=== PATIENT | female | born 1970 | race Caucasian/White ===

== ENCOUNTER → 2020-09-05 13:26 | Outpatient (BNVA) | payer MEDICAID, SELFPAY | PROVIDERS: PCP Nurse Practitioner Primary Care; Visit Provider Nurse Practitioner Family ==

== ENCOUNTER 2020-09-20 11:14 | Outpatient (REF) | payer MEDICAID, SELFPAY ==
[2020-09-20 12:01] LABS: Hematocrit 41.1 % (37-47); Hemoglobin 13.4 g/dl (12.0-16.0); Mean Corpuscular HGB Conc 32.6 g/dl (31.0-35.0); Mean Corpuscular Hemoglobin 29.5 pg (27.0-33.0); Mean Corpuscular Volume 90.5 fL (80-98); Mean Platelet Volume 9.9 fL (9.4-12.3); Platelet Count 346 X10*3/uL (160-400); Red Blood Count 4.54 X10*6/uL (4.20-5.50); Red Cell Distribution Width 12.9 % (11.0-16.0); White Blood Count 7.4 X10*3/uL (4.8-10.8)
[2020-09-20 12:44] LABS: Alanine Aminotransferase 58 U/L (0-31); Albumin Level 4.3 g/dL (3.5-5.0); Alkaline Phosphatase 110 U/L (39-117); Anion Gap 11 (12-20); Aspartate Amino Transferase 28 U/L (5-31); Bilirubin Total 0.3 mg/dL (0.0-1.0); Blood Urea Nitrogen 12 mg/dL (9-16); Calcium 9.6 mg/dL (8.4-10.2); Carbon Dioxide 28 mmol/L (22-29); Chloride 105 mmol/L (96-108); Estimated Glomerular Filt Rate > 60; Glucose Random 91 mg/dL (60-115); Potassium 4.1 mmol/L (3.3-5.1); Sodium 140 mmol/L (135-145); Total Protein 7.3 g/dL (6.5-8.0)
== END 2020-09-20 11:15 | disposition home or self-care (01) ==
LOC: HO.LAB 11:14
PROVIDERS: PCP Nurse Practitioner Primary Care; Visit Provider Nurse Practitioner Family
DX: Z12.11 Encounter for screening for malignant neoplasm of colon (principal)
CPT/HCPCS: 36415; 80053; 85027

== ENCOUNTER → 2020-09-21 13:37 | Outpatient (BNVA) | payer MEDICAID, SELFPAY | PROVIDERS: PCP Nurse Practitioner Primary Care; Visit Provider Internal Medicine | DX: Z01.810 Encounter for preprocedural cardiovascular examination (principal); R07.9 Chest pain, unspecified; Z79.899 Other long term (current) drug therapy | CPT/HCPCS: 93005; 99202 ==

== ENCOUNTER → 2020-09-27 10:48 | Outpatient (REF) | payer MEDICAID, SELFPAY ==
--- NOTE | 2020-09-27 10:52 | CA_ITS ---
Acquisition Time: 2020-09-27 11:14:42 Total Exercise Time: 00:06:35 Test Indications: Chest Pain Medications: Protocol: SURESH Max HR: 164 BPM 97% of Pred: 168 BPM Max BP: 134/072 mmHG Max Work Load: 7.8 METS Exercise stress ECHO using Suresh protocol, total of 6 min 34 sec. METS 7.80. and TAPHR up to 97%. Pt tolerated well, however had 3/10 chest pressure in mid-sternal area after exercise. EKG without any arrhythmias, no ischemic changes seen during exercise or in recovery. ECHO images taken at rest and immediately after peak exercise HR acheaved. Definity contrast used. Normotensive response to exercise. Test reviewed with Dr. Castillo. STRESS ECHO : Technique : Images were obtained at rest and immediately post exercise within 45 seconds. Definity contrast was used to enhance endocardial definition. Images were obtained in multiple views and compared side to side. Findings : At rest images are of good quality. LV systolic function is normal with normal wall motion. Post exercise images are of adequate quality. There is overall good augmentation of LV systolic function with no regional wall motion abnormalities. Conclusion : Stress echo negative for ischemia Referred By: Gonsalo Simental Overread By: LARRY CASTILLO MD
== END ==
LOC: HO.CARD 10:48
PROVIDERS: Visit Provider Internal Medicine
DX: Z01.810 Encounter for preprocedural cardiovascular examination (principal); R07.9 Chest pain, unspecified
CPT/HCPCS: 93350; Q9957

== ENCOUNTER → 2020-10-02 14:04 | Outpatient (BNVA) | payer MEDICAID, SELFPAY | PROVIDERS: PCP Nurse Practitioner Primary Care; Visit Provider Nurse Practitioner Family ==

== ENCOUNTER 2020-10-12 10:18 | Day surgery (SDC) | payer MEDICAID, SELFPAY ==
[2020-10-06 13:51] VITALS: BMI 23.4
--- NOTE | 2020-10-11 08:30 | P.CONAN_ITS ---
Documented by User: Karley Cloud 10/11/20 08:32 HPI - Anesthesia Eval Consult details Narrative: 50yo F for Colonosocpy Cardiac cleared at low risk (sent d/t reports of exertional CP and SOB - likely r/t asthma) [facility] Active Problems Active Problems: All Active Problems (Updated 10/06/20 @ 13:49 by Shayla Mei) Exertional chest pain (Acute) Shortness of breath (Acute) Preoperative cardiovascular examination (Acute) Past Medical History Medical History Asthma Preoperative cardiovascular examination Shortness of breath Family History Family History Mother Hx of cancer of lung Father Family hx of hypertension Sister Hx of diabetes mellitus History of hyperthyroidism Surgical History Surgical History Hx of hysterectomy Hx of release of tendon Hx of tubal ligation Social History Social History (Updated 10/06/20 @ 13:54 by Shayla Mei) Household Members: Spouse and Children Smoking Status: Never smoker Use of substances other than those prescribed or required for medical reasons: No Advance Directives Information Provided: No Current occupational status: unemployed Meds Allergies Allergy/AdvReac Type Severity Reaction Status Date / Time shellfish derived Allergy Severe Anaphylaxis Verified 10/12/20 12:16 aspirin Allergy Intermediate SOB Verified 10/12/20 12:16 nalbuphine [From Nubain] Allergy Intermediate HYPOTENSION, Verified 10/12/20 12:16 SOB ibuprofen Allergy Swelling Verified 10/12/20 12:15 iodine Allergy Anaphylaxis Verified 10/12/20 12:15 Home Medications Medication Instructions Recorded Confirmed Last Taken Type albuterol sulfate 90 mcg/actuation 2 puff INHALATION 6XD 09/05/20 10/06/20 Unknown History aerosol inhaler cyclobenzaprine 5 mg tablet 5 mg PO TID PRN 09/05/20 10/06/20 Unknown History fluticasone propionate 110 1 puff INHALATION BID 09/05/20 10/06/20 Unknown History mcg/actuation HFA aerosol inhaler montelukast 10 mg tablet 10 mg PO BEDTIME 09/05/20 10/06/20 Unknown History Exam Exam Date and Time: October 11, 2020 0830 Height,Weight and Vital Signs: Height 5 ft 2 in Weight 58.2 kg Pertinent Lab Results Pertinent Lab Results: Laboratory Tests 09/20/20 09/20/20 11:44 11:44 WBC 7.4 Hgb 13.4 Hct 41.1 Plt Count 346 Sodium 140 Potassium 4.1 Chloride 105 Carbon Dioxide 28 BUN 12 Creatinine 0.79 Narrative Narrative: stress echo on 09/20/20 showing exercise 6.5 min, 7.8 METS with 3/10 chest pressure however No EKG Echo evidence of ischemi EKG 09/2020: NSR @ 82, Incomplete RBBB Assessment and Plan Assessment Anesthesia Assessment: Chart Reviewed Documented by User: Bertha Anti 10/12/20 13:07 PMFSH Past Medical History Medical History Asthma Preoperative cardiovascular examination Shortness of breath Family History Family History Mother Hx of cancer of lung Father Family hx of hypertension Sister Hx of diabetes mellitus History of hyperthyroidism Surgical History Surgical History Hx of hysterectomy Hx of release of tendon Hx of tubal ligation Social History Social History (Updated 10/06/20 @ 13:54 by Shayla Mei) Household Members: Spouse and Children Smoking Status: Never smoker Use of substances other than those prescribed or required for medical reasons: No Advance Directives Information Provided: No Current occupational status: unemployed Meds Allergies Allergy/AdvReac Type Severity Reaction Status Date / Time shellfish derived Allergy Severe Anaphylaxis Verified 10/12/20 12:16 aspirin Allergy Intermediate SOB Verified 10/12/20 12:16 nalbuphine [From Nubain] Allergy Intermediate HYPOTENSION, Verified 10/12/20 12:16 SOB ibuprofen Allergy Swelling Verified 10/12/20 12:15 iodine Allergy Anaphylaxis Verified 10/12/20 12:15 Home Medications Medication Instructions Recorded Confirmed Last Taken Type albuterol sulfate 90 mcg/actuation 2 puff INHALATION 6XD 09/05/20 10/06/20 Unknown History aerosol inhaler cyclobenzaprine 5 mg tablet 5 mg PO TID PRN 09/05/20 10/06/20 Unknown History fluticasone propionate 110 1 puff INHALATION BID 09/05/20 10/06/20 Unknown History mcg/actuation HFA aerosol inhaler montelukast 10 mg tablet 10 mg PO BEDTIME 09/05/20 10/06/20 Unknown History Exam Airway Mallampati Class: II TM Dist: >3cm Neck ROM: Full Loose/Missing/Broken Teeth: No Heart: RRR Lungs: CTA Assessment and Plan Assessment Anesthesia Assessment: Anesthesia Plan Discussed and Chart Reviewed Final Anesthetic Review NPO: Yes ASA Class: II Final Preanesthetic Review: Meds/Allgs Chart Reviewed, Consent Obtained/Reviewed and Anes Risks/Benef Reviewed Patient Risk: Low Procedure Risk: Low Anesthetic Plan Anesthetic Plan: MAC: Disposition: Standard PACU
[2020-10-12 11:17] VITALS: BP 141/65; PULSE 82; RESP 16; TEMP 36.7; O2SAT 99
[2020-10-12] MEDS: Lactated Ringers 1,000 ML 100 ML IVCONT (11:39)
--- NOTE | 2020-10-12 12:31 | MHC.SHP ---
Pre-Procedural Eval Section B Chief Complaint: Screening Details of Present Illness: COLON CANCER SCREENING Relevant Family History (Specify if Yes): No Relevant Social History: None Present Medications: see Short Stay Collaborative assessment Medical History: Significant History (ASTHMA--IRRITANT INDUCED.;SOB--NEG CARDIAC EVAL.) History of Previous Operations: Relevant previous surgery/procedure and date(s) (HYSTERECTOMY, BTL) Allergies: Allergies Allergy/AdvReac Type Severity Reaction Status Date / Time shellfish derived Allergy Severe Anaphylaxis Verified 10/12/20 12:16 aspirin Allergy Intermediate SOB Verified 10/12/20 12:16 nalbuphine [From Nubain] Allergy Intermediate HYPOTENSION, Verified 10/12/20 12:16 SOB ibuprofen Allergy Swelling Verified 10/12/20 12:15 iodine Allergy Anaphylaxis Verified 10/12/20 12:15 Review of Systems Sugical H&P ROS: Negative: Constitution, Cardiovascular, Gastrointestinal, Musculoskeletal and Endocrine and Yes, Specify: Respiratory (ASTHMA) Exam Surgical H&P Exam: Normal: HEENT, Normal: Heart, Normal: Lungs, Normal: Extremities and Normal: Abdomen Plan Diagnosis/Plan: Unchanged I have reviewed the history and physical and performed a pertinent physical examination on my patient. No changes have occurred unless specified.YES
[2020-10-12 13:00] VITALS: BP 105/42; PULSE 86; RESP 18; TEMP 35.9; O2SAT 100
--- NOTE | 2020-10-12 13:03 | PM.OP ---
Brief Operative Note Date of Service: 10/12/20 Pre-op diagnosis: COLON CANCER SCREENING # 1 NO KNOWN RISK FACTORS Post-op diagnosis: other (NORMAL EXAM) Procedure: COLONOSCOPY Implants: NONE Surgeon: Patito Beckett MD Anesthesia: MAC (MD BHAVANA) Estimated blood loss (mL): 0 Pathology: none sent Condition: stable Disposition: PACU
[2020-10-12 13:15] VITALS: BP 122/61; PULSE 78; RESP 18; TEMP 36.1; O2SAT 98
--- NOTE | 2020-10-12 13:41 | PC.NURSE ---
1325 MONITORS AND IVF DCD ASST OOB CH STEADY IV DCD SITE FEEL COOL, TENDER TO TOUCH PER PT DRESSED SELF AT BA CALL FUENTES IN REACH
--- NOTE | 2020-10-14 10:16 | W.PM.OPN ---
Operative Note Operative Note Date of Service: 10/12/20 Narrative: Pre-op diagnosis: COLON CANCER SCREENING # 1 NO KNOWN RISK FACTORS Post-op diagnosis: other (NORMAL EXAM) Procedure: COLONOSCOPY Implants: NONE Surgeon: Patito Beckett MD Anesthesia: MAC (MD BHAVANA) FINDINGS: CHAI: Sphincter tone adequate. Adult slim videocolonoscope was introduced without difficulty. Scope was easily introduced through Sigmoid, descending, transverse, ascending colon into the cecum. Appediceal orifice was seen. Ileocecal valve was seen. PREP: GOOD to excellent. Slow withdrawal of scope, good rotational views: No mucosal lesions were appreciated. ARV was seen and clear. Estimated blood loss (mL): 0 Pathology: none sent Condition: stable Disposition: PACU PLAN: Repeat screening in this patient would be 10 years.
== END 2020-10-12 14:06 | disposition home or self-care (01) ==
PROVIDERS: PCP Nurse Practitioner Primary Care; Visit Provider Internal Medicine Gastroenterology
PROC: 0DJD8ZZ Inspection of Lower Intestinal Tract, Via Natural or Artificial Opening Endoscopic (ICD-10-PCS; CPT 45378; principal; 2020-10-12 11:40)
DX: Z12.11 Encounter for screening for malignant neoplasm of colon (principal); J45.909 Unspecified asthma, uncomplicated; Z79.51 Long term (current) use of inhaled steroids; Z80.1 Family history of malignant neoplasm of trachea, bronchus and lung; Z88.8 Allergy status to other drugs, medicaments and biological substances
CPT/HCPCS: 45378

== ENCOUNTER → 2020-10-27 13:40 | Outpatient (BNVA) | payer MEDICAID, SELFPAY | PROVIDERS: PCP Nurse Practitioner Primary Care; Visit Provider Nurse Practitioner Family ==

== ENCOUNTER 2020-11-07 15:08 | Outpatient (REF) | payer MEDICAID, SELFPAY ==
--- NOTE | ~2020-11-07 | MM_ITS ---
EXAMINATION: MM SCREENING DIGITAL BREAST TOMOSYNTHESIS, BILATERAL CLINICAL INFORMATION: Screening. Asymptomatic. Prior outside mammography from [place] unavailable. No known family history breast cancer. Age 50. The lifetime risk of breast cancer based on the Tyrer-Cuzick Model is 7%. COMPARISON: None. TECHNIQUE: Digital breast tomosynthesis is performed in both the craniocaudal and mediolateral oblique views along with computer-aided detection (CAD). Synthesized 2D images are generated from the tomosynthesis. Additional left MLO view is provided. FINDINGS: There are scattered areas of fibroglandular density (ACR BI-RADS breast composition Category b). There are no significant masses, abnormal calcifications, or other abnormalities. The axilla and skin contours are unremarkable. If the outside mammography from [place] is made available, we will provide comparison in an addendum report. MM/MM tomosynthesis screening BI IMPRESSION: No mammographic evidence of malignancy. ASSESSMENT: BI-RADS 1: Negative RECOMMENDATION: Routine annual mammography screening. This patient's information was entered into a reminder system with a target due date for their next mammogram.
== END 2020-11-07 15:09 | disposition home or self-care (01) ==
LOC: HO.MAMMO 15:08
PROVIDERS: Visit Provider Nurse Practitioner Primary Care
DX: Z12.31 Encounter for screening mammogram for malignant neoplasm of breast (principal)
CPT/HCPCS: 77063; 77067

== ENCOUNTER → 2020-11-09 14:42 | Outpatient (BNVA) | payer MEDICAID, SELFPAY | PROVIDERS: PCP Nurse Practitioner Primary Care; Visit Provider Nurse Practitioner Family | DX: Z13.89 Encounter for screening for other disorder (principal) | CPT/HCPCS: 99212 ==

== ENCOUNTER → 2020-12-28 11:52 | Outpatient (BNVA) | payer MEDICAID, SELFPAY | PROVIDERS: PCP Nurse Practitioner Primary Care; Visit Provider Internal Medicine | DX: R07.2 Precordial pain (principal) | CPT/HCPCS: 99212 ==

== ENCOUNTER 2021-02-21 14:41 | Outpatient (REF) | payer MEDICAID, SELFPAY | END 2021-02-21 14:42 | disposition home or self-care (01) | LOC: HO.LAB 14:41 | PROVIDERS: PCP Nurse Practitioner Primary Care; Visit Provider Internal Medicine | DX: Z20.822 Contact with and (suspected) exposure to COVID-19 (principal) | CPT/HCPCS: C9803; U0003; U0005 ==

== ENCOUNTER 2021-03-15 13:04 | Outpatient (REF) | payer MEDICAID, SELFPAY ==
[2021-03-15 13:56] LABS: COVID-19 Test Negative (Negative)
== END 2021-03-15 13:05 | disposition home or self-care (01) ==
LOC: HO.LAB 13:04
PROVIDERS: PCP Nurse Practitioner Primary Care; Visit Provider Internal Medicine
DX: Z20.822 Contact with and (suspected) exposure to COVID-19 (principal)
CPT/HCPCS: 36415; 87635; C9803

== ENCOUNTER 2021-04-24 15:25 | Outpatient (REF) | payer MEDICAID, SELFPAY | END 2021-04-24 15:26 | disposition home or self-care (01) | LOC: HO.LAB 15:25 | PROVIDERS: PCP Nurse Practitioner Primary Care; Visit Provider Internal Medicine | DX: Z20.822 Contact with and (suspected) exposure to COVID-19 (principal) | CPT/HCPCS: C9803; U0003; U0005 ==

== ENCOUNTER → 2021-05-22 14:27 | Outpatient (BNVA) | payer MEDICAID, SELFPAY | PROVIDERS: PCP Nurse Practitioner Primary Care; Visit Provider Surgery Vascular Surgery | DX: I83.11 Varicose veins of right lower extremity with inflammation (principal) | CPT/HCPCS: 99202 ==

== ENCOUNTER 2021-06-12 12:47 | Outpatient (REF) | payer MEDICAID, SELFPAY ==
--- NOTE | ~2021-06-12 | US_ITS ---
EXAMINATION: US LOWER EXTREMITY VENOUS (REFLUX EXAM), BILATERAL CLINICAL INDICATION: This is a 51-year-old female with venous insufficiency and varicose veins. COMPARISON: None. TECHNIQUE: Color flow triplex imaging and compression Doppler was performed to evaluate both the deep and the superficial systems bilaterally. To evaluate the superficial system, the examination was performed in the upright position. Color-flow Doppler ultrasound and compression ultrasound were utilized. In addition, maneuvers were utilized to demonstrate reflux. FINDINGS: 1. DEEP VENOUS ULTRASOUND OF THE RIGHT LOWER EXTREMITY: Common Femoral Vein: Compressible, normal respiratory variation and augmented flow. Femoral vein: Compressible, normal color flow and augmentation. Popliteal Vein: Compressible, normal augmentation. Deep Reflux: There is no evidence of reflux in the deep system in either the common femoral vein or the popliteal vein. There is no evidence of a Lee's cyst. 2. SUPERFICIAL ULTRASOUND WITH DOPPLER OF RIGHT LOWER EXTREMITY: GREAT SAPHENOUS VEIN: Saphenofemoral Junction: 0.4 cm. The reflux time is 2204 ms. Mid Thigh: 0.2 cm. The reflux time is 604 ms. Above Knee: 0.1 cm. There is no reflux. Below Knee: 0.1 cm. There is no reflux at this level and below. Mid Calf: 0.1 cm Ankle: 0.1 cm GSV REFLUX: There is reflux at the saphenofemoral junction. DUPLICATED GREAT SAPHENOUS VEIN: None SMALL SAPHENOUS VEIN: Proximal: 0.1 cm Distal: 0.1 cm SSV REFLUX: No evidence of reflux. VEIN OF GIACOMINI: None Imaged. PERFORATORS: None Imaged VARICOSITIES: None Imaged 3. DEEP VENOUS ULTRASOUND OF THE LEFT LOWER EXTREMITY: Common Femoral Vein: Compressible, normal respiratory variation and augmented flow. Femoral Vein: Compressible, normal color flow and augmentation. Popliteal Vein: Compressible, normal augmentation. Deep Reflux: There is no evidence of reflux in the deep system in either the common femoral vein or the popliteal vein. There is no evidence of a Lee's cyst. 4. SUPERFICIAL ULTRASOUND WITH DOPPLER OF LEFT LOWER EXTREMITY: GREAT SAPHENOUS VEIN: Saphenofemoral Junction: 0.5 cm Mid Thigh: 0.3 cm Above Knee: 0.3 cm Below Knee: 0.1 cm Mid Calf: 0.1 cm Ankle: 0.1 cm. There is isolated reflux of 496 ms at the ankle. There is no reflux above this level. GSV REFLUX: No reflux at the saphenofemoral junction. DUPLICATED GREAT SAPHENOUS VEIN: There is a 0.3 cm duplicated lateral great saphenous vein measures 0.3 cm with the reflux time of 2444 ms. SMALL SAPHENOUS VEIN: Proximal: 0.2 cm Distal: 2.1 cm SSV REFLUX: No evidence of reflux. VEIN OF GIACOMINI: None Imaged. PERFORATORS: There is a 0.2 cm insurance loss control surveyor in the mid thigh without reflux. VARICOSITIES: None Imaged US/US venous duplex LE BI IMPRESSION: 1. There is a patent 0.4 cm right great saphenous vein with reflux at the saphenofemoral junction. 2. There is a patent right small saphenous vein without reflux at the junction. 3. There is a patent left great saphenous vein without evidence of reflux at the saphenofemoral junction. 4. There is a patent 0.3 cm duplicated left great saphenous vein with reflux at the saphenofemoral junction. 5. There is a patent left small saphenous vein without reflux at the junction.
== END 2021-06-12 12:48 | disposition home or self-care (01) ==
LOC: HO.US 12:47
PROVIDERS: PCP Nurse Practitioner Primary Care; Visit Provider Surgery Vascular Surgery
DX: I83.11 Varicose veins of right lower extremity with inflammation (principal)
CPT/HCPCS: 93970

== ENCOUNTER → 2021-06-19 11:06 | Outpatient (BNVA) | payer MEDICAID, SELFPAY | PROVIDERS: PCP Nurse Practitioner Primary Care; Visit Provider Surgery Vascular Surgery | DX: I83.11 Varicose veins of right lower extremity with inflammation (principal) | CPT/HCPCS: 99212 ==

== ENCOUNTER 2022-01-01 12:23 | Outpatient (REF) | payer MEDICAID, SELFPAY ==
--- NOTE | ~2022-01-01 | MM_ITS ---
EXAMINATION: MM SCREENING DIGITAL BREAST TOMOSYNTHESIS, BILATERAL CLINICAL INFORMATION: Screening. Asymptomatic. The lifetime risk of breast cancer based on the Tyrer-Cuzick Model is 9%. COMPARISON: Mammography: 11/07/2020 (new baseline). TECHNIQUE: Digital breast tomosynthesis is performed in both the craniocaudal and mediolateral oblique views along with computer-aided detection (CAD). Synthesized 2D images are generated from the tomosynthesis. Additional exaggerated left CC and left MLO views are provided. FINDINGS: There are scattered areas of fibroglandular density (ACR BI-RADS breast composition Category b). There are no significant masses, abnormal calcifications, or other abnormalities. Parenchymal pattern is similar to the new baseline exam. No significant changes. MM/MM tomosynthesis screening BI IMPRESSION: No mammographic evidence of malignancy. ASSESSMENT: BI-RADS 1: Negative RECOMMENDATION: Routine annual mammography screening. This patient's information was entered into a reminder system with a target due date for their next mammogram.
== END 2022-01-01 12:24 | disposition home or self-care (01) ==
LOC: HO.MAMMO 12:23
PROVIDERS: Visit Provider Nurse Practitioner Primary Care
DX: Z12.31 Encounter for screening mammogram for malignant neoplasm of breast (principal)
CPT/HCPCS: 77063; 77067

== ENCOUNTER 2022-07-02 13:46 | Outpatient (REF) | payer MEDICAID, SELFPAY ==
--- NOTE | ~2022-07-02 | MM_ITS ---
EXAMINATION: MM DIAGNOSTIC DIGITAL BREAST TOMOSYNTHESIS, RIGHT US DIAGNOSTIC ULTRASOUND BREAST, RIGHT CLINICAL INFORMATION: Pain lower and outer right breast for approximately one month. Patient also notes some pain right upper extremity. The lifetime risk of breast cancer based on the Tyrer-Cuzick Model is 9%. COMPARISON: Mammography: 01/01/2022, 11/07/2020. TECHNIQUE: Digital breast tomosynthesis is performed in both the craniocaudal and mediolateral oblique views along with computer-aided detection (CAD). Synthesized 2D images are generated from the tomosynthesis. Ultrasound right breast is targeted to the areas of clinical concern. Patient is able to point areas of recent pain at time of imaging. Grayscale imaging and color Doppler are performed without and with harmonics. FINDINGS: There are scattered areas of fibroglandular density (ACR BI-RADS breast composition Category b). There are no significant masses, abnormal calcifications, or other abnormalities. There is no skin thickening or coarsening of the Ritchie's ligaments. The axilla is unremarkable. No significant changes. Ultrasound demonstrates no cystic or solid mass or architectural abnormality. No focal duct ectasia. No skin thickening or edema tracking in soft tissue planes. Results are discussed with the patient at time of visit. MM/MM tomosynthesis diagnostic RT IMPRESSION: -No mammographic evidence of malignancy or inflammatory changes. -Unremarkable targeted right breast ultrasound. ASSESSMENT: BI-RADS 1: Negative RECOMMENDATION: 1. Patient should be managed based on the clinical impression. 2. Otherwise, routine annual screening mammography. This patient's information was entered into a reminder system with a target due date for their next mammogram.
== END 2022-07-02 13:47 | disposition home or self-care (01) ==
LOC: HO.MAMMO 13:46
PROVIDERS: PCP Nurse Practitioner Primary Care; Visit Provider Registered Nurse
DX: N64.4 Mastodynia (principal)
CPT/HCPCS: 76642; 77061; 77065

== ENCOUNTER 2022-09-17 08:46 | Outpatient (REF) | payer MEDICAID, SELFPAY ==
--- NOTE | ~2022-09-17 | XR_ITS ---
EXAMINATION: XR SHOULDER, RIGHT CLINICAL INFORMATION: Pain. COMPARISON: None TECHNIQUE: Neutral, scapula Y, and axillary views of the right shoulder. FINDINGS: The bones and soft tissues are normal. No fracture. Glenohumeral and acromioclavicular alignment is anatomic, with normal joint space. There is mild osteoarthritic change of the acromioclavicular joint. The coracoclavicular interval is normal. No abnormal soft tissue calcifications. XR/XR shoulder RT min 2V IMPRESSION: 1. No fracture or dislocation is seen. 2. There is mild osteoarthritic change of the right acromioclavicular joint.
== END 2022-09-17 08:47 | disposition home or self-care (01) ==
LOC: HO.HOSX 08:46
PROVIDERS: PCP Nurse Practitioner Primary Care; Visit Provider Physician Assistant
DX: M75.101 Unspecified rotator cuff tear or rupture of right shoulder, not specified as traumatic (principal); M75.21 Bicipital tendinitis, right shoulder
CPT/HCPCS: 73030; 99202

== ENCOUNTER 2022-10-24 13:00 | Outpatient (RCR) | payer MEDICAID, SELFPAY ==
--- NOTE | 2022-10-01 13:06 | MHC.PT.EP ---
[facility] [place] Office [place] [facility] [place] Office [address] Dwight Montiel [address] [phone] F: [phone] F: [phone] F: [phone] F: [phone] Physical Therapy Plan of Care Date of Evaluation: Date of Surgery: Diagnosis: Unspecified rotator cuff tear or rupture of right shoulder, not specified as traumatic, M75.21 - Bicipital tendinitis, right shoulder Assessment: Pt is a 52 y/o female referred to physical therapy for eval and treat of R shoulder unspecified rotator cuff tear or rupture and bicipital tendinitis of R shoulder resulting in decreased tolerance and ability for reaching high shelves, pulling and lifting objects of weight, reaching her neck and back for hygiene and dressing, as well as laying on her R side and disturbed sleep secondary to decreased R shoulder ROM and strength, TTP of superior and anterior shoulder, and pain with activity. Pt is deemed an appropriate candidate to receive skilled PT services to address their physical impairments in order to improve their functional ability. Frequency and Duration: The patient will be seen 2 x / wk x 5 wks . Short Term Goals: Initiate home program. Improve baseline pain from 6-8/10 to at most 3-5/10. Public Speaking Teacher Goals: I with Home program. Pt will be able to reach high shelves with managed Sx; initial: 9/10 pain/ difficulty. Pt will improve her SPAD outcome measure by at least 13 points in order to demonstrate improved function. Improve R shoulder by at least 1/2 MMT grade; initial: 4/5 and painful. Treatment Plan: Modalities to reduce pain, spasms and effusion. Manual therapy to restore motion and function. Therapeutic exercise to improve strength and flexibility. Neuromuscular re-education for posture and balance. Therapeutic activities to return to functional activities of daily living. Electronically signed by: Ishmael Walker PT. Please sign and return to therapist. Thank you for your referral.
--- NOTE | 2022-12-03 13:23 | MHC.PT.DC ---
[facility] [place] Office [place] Office [place] Office [address] Dwight Montiel [address] [facility] [phone] F: [phone] F: [phone] F: [phone] F: [phone] Physical Therapy Discharge Report Diagnosis: Unspecified rotator cuff tear or rupture of right shoulder, not specified as traumatic, M75.21 - Bicipital tendinitis, right shoulder Date of Surgery: Date of Evaluation: 10/01/22 Date of Discharge: 12/03/22 Treatments to Date: 4 Cancellations to Date: 6 No Shows to Date: 2 Discharge Status: Patient Elected to Stop Visit Non-compliance Discharge Summary: Pt cancelled her therapy after a generous allowance of cancelled and no-show apts. Electronically signed by: Ishmael Walker PT. Please sign and return to therapist. Thank you for your referral.
== END 2022-12-03 13:23 | disposition home or self-care (01) ==
LOC: HO.PTCHIC 13:00
PROVIDERS: PCP Nurse Practitioner Primary Care; Visit Provider Physician Assistant
DX: M75.101 Unspecified rotator cuff tear or rupture of right shoulder, not specified as traumatic (principal); M75.21 Bicipital tendinitis, right shoulder
CPT/HCPCS: 97110; 97161

== ENCOUNTER → 2022-10-29 09:24 | Outpatient (BNVA) | payer MEDICAID, SELFPAY | PROVIDERS: PCP Nurse Practitioner Primary Care; Visit Provider Physician Assistant | DX: M75.101 Unspecified rotator cuff tear or rupture of right shoulder, not specified as traumatic (principal) | CPT/HCPCS: 99212 ==

== ENCOUNTER 2023-07-04 11:02 | Outpatient (REF) | payer MEDICAID, SELFPAY | END 2023-07-04 11:03 | disposition home or self-care (01) | LOC: HO.MAMMO 11:02 | PROVIDERS: PCP Family Medicine; Visit Provider Nurse Practitioner Primary Care | DX: Z12.31 Encounter for screening mammogram for malignant neoplasm of breast (principal) | CPT/HCPCS: 77063; 77067 ==

== ENCOUNTER → 2023-07-04 11:15 | Outpatient (BNV) | payer MEDICAID, SELFPAY | PROVIDERS: PCP Family Medicine; Visit Provider Radiology Diagnostic Radiology | DX: Z12.31 Encounter for screening mammogram for malignant neoplasm of breast (principal) | CPT/HCPCS: 77063; 77067 ==

== ENCOUNTER 2023-08-20 14:00 | Outpatient (RCR) | payer MEDICAID, SELFPAY | END 2023-09-18 07:55 | disposition home or self-care (01) | LOC: HO.PTCHIC 14:00 | PROVIDERS: PCP Family Medicine; Visit Provider Family Medicine | DX: M54.16 Radiculopathy, lumbar region (principal) | CPT/HCPCS: 97110; 97161 ==

== ENCOUNTER 2023-11-07 09:38 | Emergency (ER) | payer MEDICAID, SELFPAY ==
[2023-11-07 10:22] VITALS: BP 141/58; PULSE 76; RESP 16; TEMP 36.6; O2SAT 98; BMI 22.7
--- NOTE | 2023-11-07 12:12 | ED_ITS ---
HPI - General Adult General Chief complaint: Eye Problems Stated complaint: eye inj Time Seen by Provider: 11/07/23 11:22 Source: patient Mode of arrival: ambulatory Limitations: no limitations History of Present Illness HPI narrative: 53-year-old female healthy female presents to the ED for cat scratch of the face and possible left eye by her known cat. She states her cat is up-to-date with rabies. Patient states she was sleeping cat came onto her face and slipped and her claws dug into her left side of the face and eyebrow near her eye so patient pushed away her cat immediately and immediately patient had pain left side of the face and trouble opening her eyelids and her eyebrows. Patient went to urgent Care was sent to the ED. patient denies any slurred speech, facial droop, paralysis of extremities or loss of vision. Patient states due to pain and left-sided face pain makes it difficult to open left eyelid and left eyebrow. Patient denies any change in vision. Related Data Home Medications ?Medication ?Instructions ?Recorded ?Confirmed albuterol sulfate 90 mcg/actuation 2 puff inhalation 6XD 09/05/20 12/28/20 aerosol inhaler cyclobenzaprine 5 mg tablet 5 mg PO TID PRN Muscle Spasm 09/05/20 12/28/20 fluticasone propionate 110 1 puff inhalation BID 09/05/20 12/28/20 mcg/actuation HFA aerosol inhaler montelukast 10 mg tablet 10 mg PO BEDTIME 09/05/20 12/28/20 (Singulair) alcohol swabs (Alcohol Prep Pads) pad topical DIRECTED 05/22/21 blood sugar diagnostic (FreeStyle #10 ea 05/22/21 Lite Strips) Previous Rx's ?Medication ?Instructions ?Recorded lidocaine 4 % topical patch 1 patch topical DAILY PRN pain #15 09/17/22 ea amoxicillin 875 mg-potassium 1 tab PO Q12H 10 days #20 tabs 11/07/23 clavulanate 125 mg tablet erythromycin 5 mg/gram (0.5 %) eye 0.5 inch ophthalmic (eye) QID 7 11/07/23 ointment days #3.5 grams Allergies Allergy/AdvReac Type Severity Reaction Status Date / Time shellfish derived Allergy Severe Anaphylaxis Verified 11/07/23 10:23 aspirin Allergy Intermediate SOB Verified 11/07/23 10:23 nalbuphine [From Nubain] Allergy Intermediate HYPOTENSION, Verified 11/07/23 10:23 SOB ibuprofen Allergy Swelling Verified 11/07/23 10:23 iodine Allergy Anaphylaxis Verified 11/07/23 10:23 Review of Systems 2 Review of Systems: left facial pain. cat scratch to left eye. Yes all other systems are reviewed and are negative [facility] Past Medical History Medical History Asthma Preoperative cardiovascular examination Shortness of breath Surgical History H/O colonoscopy Hx of hysterectomy Hx of release of tendon Hx of tubal ligation Family History Family History Mother Hx of cancer of lung Father Family hx of hypertension Sister Hx of diabetes mellitus History of hyperthyroidism Social History Social History Household Members: Spouse and Children Alcohol intake: current Alcohol intake frequency: does not drink Patient Tobacco Use Status: Never used Tobacco Smoked in Last 30 Days: No Use of substances other than those prescribed or required for medical reasons: No Advance Directives: No Advance Directives Information Provided: No Patient : No Current occupational status: unemployed Physical Exam ED Vital Signs: Vital Signs - 24 hr 11/07/23 10:22 Temperature 97.9 F Pulse Rate 76 Respiratory Rate 16 Blood Pressure 141/58 H Pulse Oximetry 98 Oxygen Delivery Method Room Air BMI result Body Mass Index 22.7 Const General: cooperative, healthy appearing, comfortable, no acute distress, well developed, alert, awake and Physically active Orientation/consciousness: oriented to person, oriented to place, oriented to time and patient oriented x3 HENMT Head: Yes normal to inspection, Yes No palpable skull fracture present and Yes normocephalic Head images: 2 1. Superficial laceration abrasion. No suture repair needed. 2. No laceration or abrasion but tender due to Cat striking that area before being pushed off. Patient states cats claws were in the area to hold on. Eyes Other: right eye: fluorescein dye and tetracaine placed in eye. Negative for signs of corneal abrasion, corneal ulcer, or globe rupture. Eyes/upper lids images: 2 1. Superficial laceration/ abrasion. Negative puncture wound. No active bleeding. Negative for eye muscles paralysis. Negative for nerve entrapment of the eye. Negative for any redness of the eye or discharge. 2. Superficial laceration/abrasion. Negative for puncture wound. No active bleeding. Neck Neck: Yes normal visual inspection, Yes full ROM, Yes no lymphadenopathy, Yes no meningeal signs, Yes trachea midline, Yes supple, No anterior neck swelling and No tender Chest Chest palpation & inspection: normal inspection of the chest and normal palpation of entire chest wall Resp Effort & Inspection: normal respiratory effort and able to speak in complete sentences Auscultation: clear to auscultation bilaterally Cardio Jugular venous distension: no JVD Heart sounds: S1 normal heart sound present and S2 normal heart sound present GI Inspection: Yes normal to inspection and No abdominal wall ecchymosis Palpation (GI): Soft to palpation, not firm, nontender, no guarding and not rigid General: Yes no CVA tenderness Back/Spine/Pelvis Back: no CVA tenderness and No back tenderness Skin General skin exam: no rashes or lesions noted, elasticity normal and turgor normal Neuro Other: Negative pronator drift. Negative facial droop. Negative slurred speech. Negative Romberg. General: oriented to person, oriented to place, oriented to time, patient oriented x3, gait normal, tone normal, moves all extremities, Normal light touch and pain sensation, no meningeal signs, no focal motor deficits, CN's II-XI intact bilaterally and normal sensation to monofilament Extrem General: Yes normal to inspection, Yes full ROM and Yes capillary refill normal Psych Appearance: grossly normal, well kempt and not disheveled Medications Administered Discontinued Medications Generic Name Dose Route Start Last Admin Trade Name Lawrenceq PRN Reason Stop Dose Admin Acetaminophen 975 mg 11/07/23 12:58 11/07/23 13:02 Acetaminophen 325 Mg Tablet PO 11/07/23 12:59 975 mg ONCE ONE Administration Diphtheria/Tetanus/Acell Pertussis 0.5 ml 11/07/23 12:36 11/07/23 12:55 Diphth,Pertus(Acell),Tet Adult 0.5 Ml Syringe IM 11/07/23 12:37 0.5 ml .ONCE ONE Administration Fluorescein Sodium 1 strip 11/07/23 12:02 11/07/23 13:04 Fluorescein Sodium Strip EYE-BOTH 11/07/23 12:03 1 strip ONCE ONE Administration Tetracaine HCl 3 drop 11/07/23 12:02 11/07/23 13:04 Tetracaine Hcl/Pf 0.5% Oph Vickie 4 Ml Drops EYE-BOTH 11/07/23 12:03 3 drop ONCE ONE Administration Medical Decision Making Medical Decision Making MDM Narrative: 53-year-old female was sent from urgent care for being scratched the left side of the face including the eyelid and patient having trouble open up the eyelid and moved up eyebrow. Early in the ED evaluation patient had trouble opening her eyelids and left eyebrow due to pain. As ED visit prolonged and patient was given pain medication. Patient was able to completely open left eyelid and move left eyebrow. Pain resolved with Tylenol. Initial inability to open left eyelid and left eyebrow was limited due to pain caused by cat scratch to eyelid and left side of face. No facial droop. Patient has complete movement on both sides of the face including eyebrows and eyelids. Not suspecting globe rupture, cellulitis, orbital cellulitis, preseptal cellulitis, stroke or fracture. NIH score 0. Differential Diagnosis Differential Diagnoses: The differential diagnosis associated with the presentation includes Admission/Observation Consideration of admission/observation: Escalation of care including admission/observation considered ( corneal abrasion, corneal ulcer, scan charge) Prescription Management I considered prescription management with: Pain Medication and Antibiotic Discharge Plan Discharge Clinical Impression: Animal bite Patient Disposition: Home, Self-Care Instructions: Animal Bite (ED), Abrasion (ED) Additional Instructions: return to the ED immediately for any eye redness, eye discharge, eye swelling, loss of vision, change in vision, headache, dizziness, vomiting, fever, chills, red rash on face or elsewhere in the body, swelling, or any other concerning symptoms. recommend follow-up with primary care provider and Angela Damian Prescriptions: New amoxicillin-pot clavulanate 875-125 mg tablet 1 tab PO Q12H 10 Days Qty: 20 0RF erythromycin 5 mg/gram (0.5 %) ointment 0.5 inch ophthalmic (eye) QID 7 Days Qty: 3.5 0RF No Action albuterol sulfate 90 mcg/actuation HFA aerosol inhaler 2 puff inhalation 6XD fluticasone propionate 110 mcg/actuation HFA aerosol inhaler 1 puff inhalation BID cyclobenzaprine 5 mg tablet 5 mg PO TID PRN (Reason: Muscle Spasm) montelukast [Singulair] 10 mg tablet 10 mg PO BEDTIME alcohol swabs [Alcohol Prep Pads] Pads, Medicated topical DIRECTED (DME) FreeStyle Lite Strips Strip See Rx Instructions Not Applicable 3XW Qty: 10 Rx Instructions: As directed lidocaine 4 % adhesive patch,medicated 1 patch topical DAILY PRN (Reason: pain) Qty: 15 0RF Referrals: Jostin King [Physician] - ( cat scratch to face and left upper eyelid. Eye globe negative for signs of corneal abrasion, corneal ulcer, or globe rupture. Negative for any visual changes) Stand Alone Forms: Work/School Release Interventions: ED Discharge Assessment Last Done: 11/07/23 14:07 Discharge Date/Time: 11/07/23 14:08 Print Language: Mosotho
[2023-11-07] MEDS: Diphth,Pertus(ACell),Tet Adult 0.5 ML SYRINGE IM (12:55)
[2023-11-07] MEDS: Acetaminophen 325 MG TABLET 975 MG PO (13:02)
[2023-11-07] MEDS: Fluorescein Sodium STRIP 1 STRIP EYE-BOTH (13:04)
[2023-11-07] MEDS: Tetracaine HCl/PF 0.5% Oph Sol 4 ML DROPS 3 DROP EYE-BOTH (13:04)
[2023-11-07 14:07] VITALS: BP 141/58; PULSE 76; RESP 16; TEMP 36.6; O2SAT 98
== END 2023-11-07 14:08 | disposition home or self-care (01) ==
PROVIDERS: Emergency Provider Student in an Organized Health Care Education/Training Program; PCP Family Medicine
DX: S00.212A Abrasion of left eyelid and periocular area, initial encounter (principal); W55.03XA Scratched by cat, initial encounter; Y93.9 Activity, unspecified; Y92.003 Bedroom of unspecified non-institutional (private) residence as the place of occurrence of the external cause; Y99.9 Unspecified external cause status; Z23 Encounter for immunization
CPT/HCPCS: 90471; 90715; 99284

== ENCOUNTER 2023-12-03 13:54 | Outpatient (REF) | payer MEDICAID, SELFPAY ==
[2023-12-03 14:50] LABS: Appearance Urine Clear; Color Urine Yellow; Glucose Urine UA Negative (Negative); Leukocyte Esterase Urine Small (1+) (Negative); Nitrite Urine Negative (Negative); PH 6.5 (5.0-9.0); Specific Gravity - Urine 1.025 (1.005-1.025); UMIC TRIGGER UACC YES; Urine Blood Negative (Negative); Urine Ketones Trace mg/dL (Negative); Urine Protein Negative (Neg-Trace)
[2023-12-03 15:33] LABS: Bacteria Urine None Seen (None Seen); Hyaline Casts Urine 0-2 /LPF (0-2); RBC Urine 0-2 /HPF (0-2); UACC Culture Trigger YES; WBC Urine 0-5 /HPF (0-5)
== END 2023-12-03 13:55 | disposition home or self-care (01) ==
LOC: HO.CHCLNP 13:54
PROVIDERS: Visit Provider Family Medicine
DX: N39.46 Mixed incontinence (principal)
CPT/HCPCS: 81001; 87086

== ENCOUNTER 2024-02-10 18:11 | Outpatient (REF) | payer MEDICAID, SELFPAY | END 2024-02-10 18:12 | disposition home or self-care (01) | LOC: HO.HHCLNP 18:11 | PROVIDERS: Visit Provider Nurse Practitioner Family | DX: R30.0 Dysuria (principal) | CPT/HCPCS: 87086; 87088; 87186 ==

== ENCOUNTER 2024-08-16 22:38 | Emergency (ER) | payer MEDICAID, SELFPAY ==
--- NOTE | ~2024-08-16 | XR_ITS ---
CLINICAL HISTORY: dyspnea 1 view chest x-ray Comparison: None Findings: Minimal atelectasis left lung base. No consolidation or effusion. Heart size is normal. No acute fracture. IMPRESSION: Minimal atelectasis left lung base. This document has been electronically signed by: Arely Cason MD on 08/17/2024 00:47:12
[2024-08-16 23:20] VITALS: BP 120/49; PULSE 114; RESP 20; TEMP 38; O2SAT 99; BMI 21.0
[2024-08-17 00:18] LABS: Influenza A PCR POSITIVE (Negative); Influenza B PCR NEGATIVE (Negative); Resp Syncy Virus RNA Qual PCR NEGATIVE (Negative); SARS COV2 PCR INHOUSE NEGATIVE (Negative)
--- OUTSIDE RECORDS SUMMARY | 2024-08-17 00:48 | XMS_ITS | Encounter Summary ---
Author Organization [employer] Address [address] [place] [address] Care Team Providers Care Medical Assistant Cardiology Name Role Phone Palma Agustin MD Primary Care Provider [phone] Reason for Visit * Reason Comments Med Refill Encounter Details Date Type Department Care Team (Special Care Hospital Contact Info) Description 08/13/[address] [facility] [address] [place], [place] [phone] Palma Agustin MD [address] [place], [place] [phone] Social History Tobacco Use Types Packs/Day Years Used Date Smoking Tobacco: Never Passive Smoke Exposure: Never Smokeless Tobacco: Never Alcohol Use Standard Drinks/Week Comments Never 0 (1 standard drink = 0.6 oz pur e alcohol) Depression Answer Date Recorded Patient Health Questionnaire-9 Score 5 05/01/2023 Patient Health Questionnaire-9 Score 5 05/01/2023 Last PHQ-9: Questionnaire Data Not on file 1 Housing Stability Answer Date Recorded What is your housing situation today? I have princess rodriguez 05/01/[address] you li ve. Do you have problems with any of the following? None of the above 05/01/2023 Food Insecurity Answer Date Recorded Within the past 12 months, y ou worried that your food would run out before you got money to buy more: Never True 05/01/2023 Within the past 12 months,th e food you bought just didn't last and you didn't have enough money to get more: Never True Transportation Answer Date Recorded In the past 12 months, has l ack of transportation kept you from medical appts, meetings, work or from getting things needed for daily living? No 05/01/2023 Utilities Answer Date Recorded In the past 12 months, has t he electric, gas, oil or water company threatened to shut off services in your home? No 05/01/2023 Depression Answer Date Recorded Patient Health Questionnaire-2 Score 0 05/01/2023 Comments Unknown Sex and Gender Information Value Date Recorded Sex Assigned at Female 05/13/2022 10:36 AM EDT Legal Sex Female 10:36 AM EDT Gender Identity Female 05/13/2022 10:36 AM EDT Sexual Orientation Straight 05/13/2022 10 :36 AM EDT documented as of this encounter Plan of Treatment Upcoming Encounters Date Type Department Care Team (Late st Contact Info) Description 10/05/2024 2:30 PM EDT Office Visit [facility] [address] [place] [address] Scott, Abby, OD [address] [place] [address] documented as of this encounter Visit Diagnoses Not on filedocumented in this encounter Additional Health Concerns Assessment Noted Time PHQ-9 Depression Total Score: 5 05/01/20 23 11:38 AM EDT documented as of this encounter Care Teams Medical Assistant Cardiology Relationship Specialty Start Date End Date Palma Agustin MD [address] [place] [address] PCP - General Family Medicine 05/01/23 documented as of this encounter
--- OUTSIDE RECORDS SUMMARY | 2024-08-17 00:48 | XMS_ITS | Encounter Summary ---
Author Organization [employer] Address [address] [place] [address] Care Team Providers Care Sheet Metal Operator Name Role Phone Palma Agustin MD Primary Care Provider [phone] Encounter Details Date Type Department Care Team (Late st Contact Info) Description 02/16/2024 Orders Only [facility] [address] [place], [place] [phone] Netta Jennings, LUCY [address] [place] [address] Social History Tobacco Use Types Packs/Day Years [...] Description 10/05/2024 2:30 PM EDT Office Visit [facility] [address] [place] [address] Scott, Abby, OD [address] [place] [address] documented as of this encounter Procedures Procedure Name Priority Date/Time Associated Diagnosis Comments SARS COV2/INFLUENZA A/B AND RSV RNA QL NAAT Routine 08/16/2024 11:34 PM EST documented in this encounter Results * (ABNORMAL) SARS-CoV-2 RNA, Influenza A/B, and RSV RNA, Ql NAAT (08/16/2024 11:34 PM EST) Influenza A PCR POSITIVE(A) Negative [facility] Influenza B PCR NEGATIVE Negative [facility] Resp Syncy Virus RNA Qual PCR NEGATIVE Negative [facility] SARS COV2 PCR NEGATIVE Negative [facility] Comment:All test results mus t be correlated with clinical findings.Negative results do not preclude SARS-CoV2, influenza Avirus, influenza B virus and/or RSV infectionand should not be used as the sole basis for treatment orother patient management decisions. Negative results must becombined with clinical observations, patient history, andepidemiological information.This test has not been evaluated for monitoring treatment ofinfection.This test has been authorized by the FDA under an EmergencyUse Authorization (EUA) for use by authorized laboratories.Testing performed on the [employer] GeneXpert utilizingreal-time RT-PCR.All SARS CoV2 and positive influenza A/B results arereported to [facility]. 08/16/2024 11:3 4 PM EST 08/16/2024 11:39 PM EST us Generic External Data Provider LAB MICROBIOLOGY - GENERAL ORDERABLES Final Result [facility] [address] [place] [address] [phone] documented in this encounter Visit Diagnoses Not on filedocumented in this encounter Additional Health Concerns Assessment Noted Time PHQ-9 Depression Total Score: 5 05/01/20 11:38 AM EDT documented as of this encounter Care Teams Sheet Metal Operator Relationship Specialty Start Date End Date Palma Agustin MD [address] [place] [id number] PCP - General Family Medicine 05/01/23 documented as of this encounter
--- OUTSIDE RECORDS SUMMARY | 2024-08-17 00:48 | XMS_ITS | Clinical Summary ---
Author Organization [email or web address] Address [address] [facility] [address] [place] [address] Care Team Providers Care Power System Engineer Name Role Phone Palma Agustin MD Primary Care Provider Allergies Active Allergy Reactions Criticality Noted Date Comments Aspirin Anaphylaxis High 08/04/2019 Other reaction(s): Trouble Breathing Other reaction(s): SOB Ibuprofen Anaphylaxis High 06/20/2022 Other reaction(s): Swelling Iodine Anaphylaxis High 10/29/2022 Latex Hives 06/20/2022 Nalbuphine Anaphylaxis High 09/25/2020 Other reaction(s): HYPOTENSION, SOB Penicillins Anaphylaxis High 04/14/2020 Other reaction(s): Difficulty breathing Shellfish Allergy 01/06/2023 Shellfish-Derived Products Anaphylaxis High 08/04/19 20 Medications * This document contains information received from the source organization and may not represent a complete record from that organization. EPINEPHrine (Epipen) 0.3 MG/0.3ML injection syringe Inject 0.3 mL into the shoulder, thigh, or buttocks. 2 Active Spacer/Aero-Hol ding Chambers (OptiChamber Yesica) misc 1 each every 4 (four) hours if needed (asthma). 1 each 3 Active fluticasone furoate (Arnuity Ellipta) 200 MCG/ACT inhaler Inhale 1 puff in the morning. Rinse mouth with water after use to reduce aftertaste and incidence of candidiasis. Do not swallow. 30 each 11 4 Active tolterodine LA (Detrol LA) 4 MG 24 hr capsule Take 1 capsule (4 mg) by mouth Once per day. Do not crush, chew, or split. 90 capsule 1 4 Active albuterol (Ventolin HFA) 108 (90 Base) MCG/ACT inhalerIndicati ons:Wheezing INHALE 2 PUFFS BY MOUTH EVERY 4 TO 6 HOURS NEEDED 18 g 2 4 Active Active Problems Problem Noted Date Diagnosed Date Mixed stress and urge urinary incontinence 12/02 Assessment & Plan (02/20/2024 10:13 PM EDT): Referring to Urology for further evaluation. Pt wasn't able to be seen last referral. Assessment & Plan (12/03/2023 9:51 AM EDT): Referring to Urology for further evaluation. Ordering Urinalysis to r/o infection. Prescribing Detrol LA for incontinence symptoms. Relevant Medication Tolterodine LA (Detrol LA) 4 MG 24 hr capsule Mild intermittent asthma without complication Assessment & Plan (06/03/2023 11:56 AM EST): Given changes in insurance covering [employer] will switch controller med and refill her rescue inhaler. Assessment & Plan (05/01/2023 11:57 AM EDT): -Patient with complaints of mild asthma will be prescribed Inhalers. Lumbar back pain with radicu lopathy affecting left lower extremity 05/01/2023 Assessment & Plan (06/03/2023 11:55 AM EST): Patient reports that PT request was sent to another facility and that she feels uncomfortable going to [place]. PT will help with lumbar back pain and hip mobility. Assessment & Plan (05/01/2023 11:31 AM EDT): -Recommended patient to get physical therapy to improve hip pain: patient agreed. -Patient with complaints of hip pain will be referred to Physical Therapy. Insomnia 05/01/2023 Assessment & Plan (06/02/2023 2:50 PM EST): Patient reported that insomnia has improved. Also, patient stated having an acute reaction and not needing medications. Therefore, Trazodone will be discontinued. Assessment & Plan (05/01/2023 11:32 AM EDT): -Recommended patient to have medication to treat insomnia: patient agreed. -Will be prescribing Trazodone. -Follow up in 1 month. Post-traumatic stress disorder, unspecified 02/12 Assessment & Plan (03/11/2023 9:51 AM EDT): Assessment: ?? Patient with flashbacks, anxiety, panic attacks, hypervigilance, body tension, recurrent distressing memories, and effort to avoid external reminders in the context of a traumatic incident. Patient requested to be referred to an OP therapist. ?? At this time Viridiana Mcintyre meets criteria for Visit Diagnoses: Problem List Items Addressed This Visit ? Other ?? Post-traumatic stress disorder, unspecified ?? Patient ready to address current needs Yes ?? Strengths include motivation to seek service ?? PLAN: 1. Follow up with [facility]: Not recommended for follow-up 2. Patient goal is to be connected with a therapist. 3. Behavioral Recommendations a. Patient will engage in OP therapy once established b. Patient may request to speak with [facility], if needed c. Patient will use coping skills dicussed History of hysterectomy 01/07/2023 Painful arc syndrome of right shoulder Shortness of breath 12/18/2022 Varicose veins of right lower extremity with inf lammation 12/18/2022 Arthritis of facet joint of lumbar spine 020 Resolved Problems Problem Noted Date Diagnosed Date Resolved Date Left eye injury 12/03/2023 02/20/2024 Assessment & Plan (12/04/2023 9:05 AM EDT): Referring to Optometry for further evaluation, I attempt to contact Dr. Chavez. [facility] and my [place] attempt calling the patient but none of the phones in the chart were working phones. Paraspinal muscle spasm 09/18/2023 08/0 03/2024 Assessment & Plan (09/18/2023 10:45 AM EST): Recommended RICE, will rx short course of tramadol for pain relief & methocarbamol as a muscle relaxer. Discussed non pharm modalities to help with symptoms. Acute chalazion, right 06/02/202302/19 Assessment & Plan (06/02/2023 2:45 PM EST): Patient still presents visit with concerns of chalazion, therefore, patient will be given Polysporin to apply on R eye. Wheezing 06/02/2023 06/03/2023 Biceps tendonitis on right 12/18/2022 0 02/20/2024 Exertional chest pain 12/18/20222022 Precordial chest pain 12/18/20222022 Preoperative cardiovascular examination 12/18/2022 01/07/2023 Encounters Date Type Department Care Team Description 08/13/2024 Refill [facility] [address] [place] [address] Palma Agustin MD 06/12/2024 Refill [facility] [address] [place] [address] Palma Agustin MD Wheezing 06/04/2024 Travel from Last 3 Months Immunizations Name Administration Dates Next Due Influenza injectable quadriv alent preservative free 04/18/2021,06/20/2020,08/04/2019 Moderna Covid-19 Vaccine 12+ 10/23/2020,09/26/19 21 Pfizer Covid-19 Vaccine 12+ nila-sucrose (Werner Cap) 11/23/2021 Tdap 11/07/2023,08/04/2019 Zoster, Recombinant 03/06/2020 Social History Tobacco Use Types Packs/Day Years Used Date Smoking Tobacco: Never Passive Smoke Exposure: Never Smokeless Tobacco: Never Tobacco Cessation:Counseling Given: Not Answered Alcohol Use Standard Drinks/Week Comments Never 0 [...] Orientation Straight 05/13/2022 10 :36 AM EDT Last Filed Vital Signs Vital Sign Reading Time Taken Comments Blood Pressure 121/62 02/20/2024 10:49 AM EDT Pulse 80 02/20/2024 10:49 AM EDT Temperature 36.2 ??C (97.1 ??F) 02/20/2024 10:49 AM E DT Respiratory Rate 18 02/20/2024 10:49 AM EDT Oxygen Saturation 99% 02/20/2024 10:49 AM EDT Inhaled Oxygen Concentration - - Weight 58.1 kg (128 lb) 02/20/2024 10:49 AM EDT Height 157.5 cm (5' 2 ) 02/20/2024 10:49 AM EDT Body Mass Index 23.41 02/20/2024 10:49 AM EDT Plan of Treatment Upcoming Encounters Date Type Department Care Team (Late st Contact Info) Description 10/05/2024 2:30 PM EDT Office Visit [facility] [address] [address] Abby Chavez, OD [address] [place] [address] Health Maintenance Due Date Last Done Comments CT Colonography 1968 FIT DNA/Cologuard 1968 FIT 1968 FOBT 1968 Sigmoidoscopy 1968 Alcohol/Substance Use Screening 1980 Hepatitis B Vaccines (1 of 3 - 19+ 3-dose series) 01/29/1987 Pneumococcal Vaccine: 50+ Years (1 of 2 - PCV) 01/29/1987 Pap Smear 01/29/1989 HPV/Cotest 01/29/1998 COVID-19 Vaccine ( season) 2024 11/23/2021, 10/23/2020, 09/25/2020 Influenza Vaccine (#1) 2024 , 06/20/2020, 08/04/2019 Depression Screening 05/01/2024 05/01/2023, 05/01/20 23 Mammogram 07/04/2024 07/04/2023, 12, 07/02/2022, Additional history exists SDOH Screening 12/11/2024 12/12/2023 Tobacco Screening 02/19/2025 02/20/2024 Zoster Vaccines (2 of 2) 02/19/2025 03/06/2020 Pos tponed from 05/01/2020 (Patient Refused) Colonoscopy 09/05/2030 09/05/2020 Colorectal Cancer Screening 09/05/2030 DTaP/Tdap/Td Vaccines (3 - Td or Tdap) 11/06/2033 11/07/2023, 08/04/2019 RSV Patients and Patients Aged 60 years or older (1 - 1-dose 75+ series) 01/29/2043 HIV Screening Completed 09/01/2019 Hepatitis C Screening Completed 09/01/2019 Cervical Cancer Screening Discontinued HIB Vaccines Aged Out No longer eligi ble based on patient's age to complete this topic HPV Vaccines Aged Out No longer eligi ble based on patient's age to complete this topic Hepatitis A Vaccines Aged Out No long er eligible based on patient's age to complete this topic IPV Vaccines Aged Out No longer eligi ble based on patient's age to complete this topic Meningococcal Vaccine Aged Out No juliana rachel eligible based on patient's age to complete this topic RSV under 20 months Aged Out No longe r eligible based on patient's age to complete this topic Rotavirus Vaccines Aged Out No longer eligible based on patient's age to complete this topic Procedures Procedure Name Priority Date/Time Associated Diagnosis Comments SARS COV2/INFLUENZA A/B AND RSV RNA QL NAAT Routine 08/16/2024 11:34 PM EST BI MAMMOGRAM SCREENING TOMOSYNTHESIS BILATERAL Routine 07/04/2023 11:25 AM EST HM COLONOSCOPY Routine 09/05/2020 [facility] HISTORICAL HEPATITIS C ANTIBODY RFLX Routine 09/01/2019 10:40 AM EST ZZZ HISTORICAL HIV AB/AG Routine 09/01/2019 10:40 AM EST from Last 3 Months or Most Recently Relevant to Health Maintenance Results * (ABNORMAL) SARS-CoV-2 RNA, Influenza A/B, and RSV RNA, Ql NAAT (08/16/2024 11:34 PM EST) Influenza A PCR POSITIVE(A) Negative [facility] Influenza B PCR NEGATIVE Negative [facility] Resp Syncy Virus RNA Qual PCR NEGATIVE Negative [facility] SARS COV2 PCR NEGATIVE Negative [facility] Comment:All test results mus t be [...] use by authorized laboratories.Testing performed on the [employer] GeneXpert utilizingreal-time RT-PCR.All SARS CoV2 and positive influenza A/B results arereported to [facility]. 08/16/2024 11:3 4 PM EST 08/16/2024 11:39 PM EST us Generic External Data Provider LAB MICROBIOLOGY - GENERAL ORDERABLES Final Result Performing Organization Address [facility]/State/ZIP Co de Phone Number [facility] [address] [place] [address] [phone] * BI Mammogram Screening Tomosynthesis Bilateral (07/04/2023 11:25 AM EST) Anatomical Region Laterality Modality Breast Bilateral Mammography 07/04/2023 11:2 5 AM EST Narrative 07/09/2023 4:18 AM EST ? [facility] ? [address] ?[place] [id number] ? Mammography Report ? Signed ? Patient: Mcintyre,Viridiana N ?MR#: [id number] ?? 1 ? : 1970 ?Acct:[id number] ? Age/Sex: 53 / F ?ADM Date: // ? Loc: HO.MAMMO ? Attending Dr: Luis Alberto Bullock [employer]AMP [employer] ? Ordering Physician: LUIS ALBERTO BULLOCK NP ?Results: 1Negative ? Date of Service: 07/04/ ?Follow Up: 1 Year From Orig ?? inal Mammogram ? Procedure(s): MM tomosynthesis screening BI ?? Accession Number(s): [id number] ? cc: LUIS ALBERTO BULLOCK NP; Palma Agustin MD ? EXAMINATION: ?? MM SCREENING DIGITAL BREAST TOMOSYNTHESIS, BILATERAL ? CLINICAL INFORMATION: ? Screening. Asymptomatic. ? COMPARISON: ?? Mammography: This study is compared with prior exams dating back to ?? 2020. ? TECHNIQUE: ?? Digital breast tomosynthesis is performed in both the craniocaudal and ?? mediolateral oblique views along with computer-aided detection (CAD). ?? Synthesized 2D images are generated from the tomosynthesis. ? FINDINGS: ?? There are scattered areas of fibroglandular density (ACR BI-RADS breast ?? composition Category b). ? There are no significant masses, abnormal calcifications, or other ?? abnormalities. ? MM/MM tomosynthesis screening BI ?? IMPRESSION: ?? No mammographic evidence of malignancy. ? ASSESSMENT: ? BI-RADS BI-RADS 1 - Negative ? RECOMMENDATION: ?? Routine annual mammography screening. ? 1 year F/U ? This examination should not preclude the clinical evaluation of a ?? suspicious palpable abnormality. ? This patient's information was entered into a reminder system with a ?? target due date for their next mammogram. ? Dictated By: ?Elisa Kaur MD ? Signed By: ?<Electronically signed by Elisa Kaur MD in OV> ? 07/09/23 0414 ? DD/ 1125 ? TD/TT: ? Hash Slinger: ? Procedure Note Nacho Diaz - 07/09/2023 [facility] [address] [place], [place] [address] Mammography Report Signed Patient: Viridiana Mcintyre [facility]#: [id number] 1 : 1970Acct:[id number] Age/Sex: 53 / FADM Date: 07/04/23 Loc: [facility] Attending Dr: Luis Alberto Bullock [employer] Ordering Physician: LUIS ALBERTO BULLOCKesults: 1Negative Date of Service: 07/04/23Follow Up: 1 Year From Orig inal Mammogram Procedure(s): MM tomosynthesis screening BI Accession Number(s): [id number] cc: LUIS ALBERTO BULLOCK [employer]; Palma Agustin MD EXAMINATION: MM SCREENING DIGITAL BREAST TOMOSYNTHESIS, BILATERAL CLINICAL INFORMATION: Screening. Asymptomatic. COMPARISON: Mammography: This study is compared with prior exams dating back to 2020. TECHNIQUE: Digital breast tomosynthesis is performed in both the craniocaudal and mediolateral oblique views along with computer-aided detection (CAD). Synthesized 2D images are generated from the tomosynthesis. FINDINGS: There are scattered areas of fibroglandular density (ACR BI-RADS breast composition Category b). There are no significant masses, abnormal calcifications, or other abnormalities. MM/MM tomosynthesis screening BI IMPRESSION: No mammographic evidence of malignancy. ASSESSMENT: BI-RADS BI-RADS 1 - Negative RECOMMENDATION: Routine annual mammography screening. 1 year F/U This examination should not preclude the clinical evaluation of a suspicious palpable abnormality. This patient's information was entered into a reminder system with a target due date for their next mammogram. Dictated By: Elisa Kaur MD Signed By: <Electronically signed by Elisa Kaur MD in OV> 07/09/23 0414 DD/ 1125 TD/TT: Hash Slinger: us Luis Alberto MALDONADO IMG BI PROCEDURES Edited Result - Final * Hm Colonoscopy (09/05/2020) Colonoscopy PERFORMED Historical Provider HEALTH MAINTENANCE Final Result * HEPATITIS C ANTIBODY RFLX (09/01/2019 10:40 AM EST) HEPATITIS C ANTIBODY NONREACTIVE NONREACTIVE [facility] Comment: Antibodies to HCV not detected; does not exclude early acute HCV infection. 09/01/2019 10:4 0 AM EST us Luis Alberto MALDONADO HISTORICAL/NON ORDERABLE LABS Fi nal Result [facility] [address] * HIV AB/AG (09/01/2019 10:40 AM EST) [facility] HIV AG/AB NONREACTIVE [facility] Comment: HIV-1 p24 Ag and/or HIV-1/HIV-2 Ab not detected. ?? A test result that is nonreactive does not exclude the possibility of exposure to or infection with HIV-1 and/or HIV-2. Nonreactive results in this assay for individuals with prior exposure to HIV-1 and/or HIV-2 may be due to antigen and antibody levels that are below the limit of detection of this assay. ?? The [employer] HIV Ag/Ab Combo assay result and supplemental assay results should be interpreted in conjunction with the patient's clinical presentation, history and other laboratory results. ??If the results are inconsistent with clinical evidence, additional testing is suggested to confirm the result. 09/01/2019 10:4 0 AM EST us Luis Alberto Bullock ANP HISTORICAL/NON ORDERABLE LABS Fi nal Result Performing Organization Address City/State/[facility] Co de Phone Number [facility] [address] from Last 3 Months or Most Recently Relevant to Health Maintenance Insurance [facility] C[employer] Care Teams Power System Engineer Relationship Specialty Start Date End Date Palma Agustin MD [address] [place] [phone] PCP - General Family Medicine 05/01/23
--- NOTE | 2024-08-17 00:53 | ED_ITS ---
HPI - General Adult General Chief complaint: General Medical Stated complaint: asthma/fever/chills/sob Time Seen by Provider: 08/16/24 23:56 Source: patient Mode of arrival: ambulatory Limitations: no limitations History of Present Illness ED Provider: Dr. Senia Orozco HPI narrative: Patient comes to the emergency room complaining of body aches, frequent asthma exacerbations . Patient now complaining of body aches, chills. Patient states that she ran out of her inhalers , both albuterol and inhaled steroid. Patient denies chest pain or shortness of breath except when she is having asthma exacerbations. Related Data Home Medications ?Medication ?Instructions ?Recorded ?Confirmed albuterol sulfate 90 mcg/actuation 2 puff inhalation 6XD 09/05/20 12/28/20 aerosol inhaler cyclobenzaprine 5 mg tablet 5 mg PO TID PRN Muscle Spasm 09/05/20 12/28/20 fluticasone propionate 110 1 puff inhalation BID 09/05/20 12/28/20 mcg/actuation HFA aerosol inhaler montelukast 10 mg tablet 10 mg PO BEDTIME 09/05/20 12/28/20 (Singulair) alcohol swabs (Alcohol Prep Pads) pad topical DIRECTED 05/22/21 blood sugar diagnostic (FreeStyle #10 ea 05/22/21 Lite Strips) Previous Rx's ?Medication ?Instructions ?Recorded lidocaine 4 % topical patch 1 patch topical DAILY PRN pain #15 09/17/22 ea amoxicillin 875 mg-potassium 1 tab PO Q12H 10 days #20 tabs 11/07/23 clavulanate 125 mg tablet erythromycin 5 mg/gram (0.5 %) eye 0.5 inch ophthalmic (eye) QID 7 11/07/23 ointment days #3.5 grams acetaminophen 500 mg tablet 500 mg PO Q6H PRN fever or pain 08/17/24 #20 tabs albuterol sulfate 90 mcg/actuation 2 puff inhalation Q4-6H PRN 08/17/24 aerosol inhaler shortness of breath or wheezing #8.5 grams fluticasone furoate 100 1 inh inhalation DAILY #30 ea 08/17/24 mcg/actuation blister powder for inhalation (Arnuity Ellipta) prednisone 50 mg tablet 50 mg PO DAILY #4 tabs 08/17/24 Allergies Allergy/AdvReac Type Severity Reaction Status Date / Time shellfish derived Allergy Severe Anaphylaxis Verified 08/16/24 23:22 aspirin Allergy Intermediate SOB Verified 08/16/24 23:22 [id number] [From Nubain] Allergy Intermediate HYPOTENSION, Verified 08/16/24 23:22 SOB ibuprofen Allergy Swelling Verified 08/16/24 23:22 iodine Allergy Anaphylaxis Verified 08/16/24 23:22 Review of Systems Review of Systems: Constitutional : No Weight loss, complaining of fever and chills, fatigue and generalized malaise ENT/Mouth : No Hearing loss, No Ear Pain, No Nasal Congestion, No Sinus Pain, No Hoarseness, No sore throat, No Rhinorrhea, No Swallowing Difficulty Eyes: No Eye Pain, No Swelling, No Redness, No Foreign Body, No Discharge, No Vision Changes Cardiovascular : No Chest Pain, No SOB, No Dyspnea on Exertion, No Orthopnea, No Edema, No Palpitations Respiratory : Complaining of wheezing, No Smoke Exposure, No Dyspnea Gastrointestinal : Complaining of Nausea, No Vomiting, No Diarrhea, No Constipation, No abdominal Pain, No Hematochezia, No Melena Genitourinary : no irregular bleeding, No Dysuria, No Urinary Frequency, No Hematuria, No Urinary Incontinence, No Urgency, No Flank Pain, No Urinary Flow Changes, No Hesitancy Musculoskeletal : No joint pain, No Myalgias, No Joint Swelling Skin : No Skin Lesions, No rash Neuro : No Weakness, No Numbness, No Paresthesias, No Loss of Consciousness, No Dizziness, No Headache Psych : No Anxiety/Panic, No Depression, No SI/HI/AH/VH, No Social Issues, Heme/Lymph: No Bruising, No Bleeding,No Lymphadenopathy Endocrine : No Polyuria, No Polydipsia, No Temperature Intolerance [facility] Past Medical History Medical History Asthma Shortness of breath Preoperative cardiovascular examination Surgical History H/O colonoscopy Hx of hysterectomy Hx of release of tendon Hx of tubal ligation Family History Family History Mother Hx of cancer of lung Father Family hx of hypertension Sister Hx of diabetes mellitus History of hyperthyroidism Social History Social History Household Members: Spouse and Children Alcohol intake: current Alcohol intake frequency: does not drink Patient Tobacco Use Status: Never used Tobacco Advance Directives: No Advance Directives Information Provided: Yes Current occupational status: unemployed Physical Exam ED Vital Signs: Vital Signs - 24 hr 08/16/24 23:20 Temperature 100.4 F Pulse Rate 114 H Respiratory Rate 20 Blood Pressure 120/49 L Pulse Oximetry 99 Oxygen Delivery Method Room Air BMI result Body Mass Index 21.0 Const Other: Appearance: Alert. Oriented X3. No acute distress. Eyes: Pupils equal, round and reactive to light. ENT: Pharynx normal. Neck: Normal inspection. Neck supple. No lymph nodes noted. No crepitus CVS: Normal heart rate and rhythm. Pulses normal. Normal S1 and S2 Respiratory: No respiratory distress. Breath sounds normal. No Wheezing. No rales Abdomen: Soft and nontender. No rigidity. No distention. Skin: Skin warm and dry. Normal skin color. Normal skin turgor. Extremities: No lower extremity edema. No Lacerations. No Rash Neuro: Oriented X 3. No motor deficit. No sensory deficit. Moving all extremities. No slurred speech. CN 2 through 12 grossly intact Psych: calm, cooperative, normal affect Medical Decision Making Medical Decision Making [facility] Narrative: My interpretation of labs: Patient's serology positive for influenza Chest x-ray does not show atelectasis. Discussed with the patient that likely the flu is worsening her asthma exacerbations. At this time, patient is not having an exacerbation, oxygen saturation is 99% room air even with walking in her room. Discussed with the patient that we can either start Tamiflu or treat symptomatically. Since patient has not symptomatic for almost 4 days now, patient decided to go ahead and just treat the symptoms, no time if Her inhalers have been sent to her pharmacy and prednisone. Patient received in the emergency room the 1st dose of prednisone, Zofran for nausea and Tylenol for fever. Differential Diagnosis Differential Diagnoses: The differential diagnosis associated with the presentation includes (Influenza, COVID, pneumonia, viral illness) Lab Data [facility] Lab Attestation statement: I reviewed the patient's lab results. Labs: Lab Results 08/16/24 Range/Units 23:34 Influenza Type A (PCR) POSITIVE A (Negative) Influenza Type B (PCR) NEGATIVE (Negative) RSV RNA Qual (PCR) NEGATIVE (Negative) SARS-CoV-2 RNA (RT-PCR) NEGATIVE (Negative) Independent Interpretation I performed an independent interpretation of an: Plain X-Ray Radiology Impression Discussion of test interpretation with radiology: I have reviewed the radiologist's reading. Radiologist Impression: Minimal atelectasis left lung base. No consolidation or effusion. Heart size is normal. No acute fracture. IMPRESSION: Minimal atelectasis left lung base. Discharge Plan Discharge Clinical Impression: Influenza A, Asthma Patient Disposition: Home, Self-Care Instructions: Asthma (ED), Influenza (ED) Additional Instructions: Please follow-up with your primary care physician tomorrow. If you have any worsening or new symptoms, please return to the emergency room or call 911 Prescriptions: New albuterol sulfate 90 mcg/actuation HFA aerosol inhaler 2 puff inhalation Q4-6H PRN (Reason: shortness of breath or wheezing) Qty: 8.5 1RF prednisone 50 mg tablet 50 mg PO DAILY Qty: 4 0RF Arnuity Ellipta 100 mcg/actuation blister with device 1 inh inhalation DAILY Qty: 30 0RF acetaminophen 500 mg tablet 500 mg PO Q6H PRN (Reason: fever or pain) Qty: 20 0RF No Action amoxicillin-pot clavulanate 875-125 mg tablet 1 tab PO Q12H 10 Days Qty: 20 0RF erythromycin 5 mg/gram (0.5 %) ointment 0.5 inch ophthalmic (eye) QID 7 Days Qty: 3.5 0RF albuterol sulfate 90 mcg/actuation HFA aerosol inhaler 2 puff inhalation 6XD fluticasone propionate 110 mcg/actuation HFA aerosol inhaler 1 puff inhalation BID cyclobenzaprine 5 mg tablet 5 mg PO TID PRN (Reason: Muscle Spasm) montelukast [Singulair] 10 mg tablet 10 mg PO BEDTIME alcohol swabs [Alcohol Prep Pads] Pads, Medicated topical DIRECTED (DME) FreeStyle Lite Strips Strip See Rx Instructions Not Applicable 3XW Qty: 10 Rx Instructions: As directed lidocaine 4 % adhesive patch,medicated 1 patch topical DAILY PRN (Reason: pain) Qty: 15 0RF Print Language: Guine[place]
[2024-08-17] MEDS: predniSONE 20 MG TABLET 60 MG PO (01:27)
[2024-08-17] MEDS: Acetaminophen 325 MG TABLET 975 MG PO (01:27)
[2024-08-17] MEDS: Ondansetron ODT 4 MG TAB.RAPDIS TRANSLINGU (01:27)
[2024-08-17 01:33] VITALS: BP 110/51; PULSE 100; RESP 14; TEMP 37.9; O2SAT 100
== END 2024-08-17 01:35 | disposition home or self-care (01) ==
PROVIDERS: Emergency Provider Emergency Medicine; PCP Family Medicine
DX: J10.1 Influenza due to other identified influenza virus with other respiratory manifestations (principal); J45.909 Unspecified asthma, uncomplicated; M79.10 Myalgia, unspecified site; R06.02 Shortness of breath; R50.9 Fever, unspecified; Z79.899 Other long term (current) drug therapy; Z03.818 Encounter for observation for suspected exposure to other biological agents ruled out
CPT/HCPCS: 0241U; 71045; 99283; 99284

== ENCOUNTER → 2024-08-16 23:44 | Outpatient (BNV) | payer MEDICAID, SELFPAY | PROVIDERS: Emergency Provider Emergency Medicine; PCP Family Medicine; Visit Provider Radiology Diagnostic Radiology | DX: R06.00 Dyspnea, unspecified (principal) | CPT/HCPCS: 71045 ==